=== PATIENT | female | born 1955 | race Caucasian/White ===

== ENCOUNTER 2019-02-24 02:48 | Inpatient (IN) | payer OTHER ==
[~2019-02-24] VITALS: Ht 157.5 cm; Wt 77.3 kg
[2019-02-24] VITALS (11 sets, daily range): BP systolic 100–126
[2019-02-24] MEDS ORDERED: NACL 0.9% 1,000 ML IV ONE ×2 (03:30→07:15)
[2019-02-24] MEDS ORDERED: KETOROLAC TROMETHAMINE 30 MG VIAL IVP ONE (03:30)
[2019-02-24] MEDS ORDERED: cefTRIAXone 1 GM IVPB PREMIX 50 ML IV ONE (03:30)
[2019-02-24 04:07] LABS: BASOPHILS % (AUTO) 0.2 % (0.0-2.0); EOSINOPHILS % (AUTO) 0.3 % (0.0-4.0); HEMATOCRIT 32.2 % (36-48); HEMOGLOBIN 11.1 g/dL (12.0-16.0); LYMPHOCYTES # (AUTO) 0.4 K/uL (1.0-5.5); LYMPHOCYTES % (AUTO) 3.4 % (20.5-51.5); MEAN CORPUSCULAR HEMOGLOBIN 32 pg (27-31); MEAN CORPUSCULAR HGB CONC 34 % (32-36); MEAN CORPUSCULAR VOLUME 92 fL (79.0-98.0); MONOCYTES % (AUTO) 7.8 % (1.7-9.3); NEUTROPHILS # (AUTO) 11.2 K/uL (1.8-7.7); NEUTROPHILS % (AUTO) 88.3 % (40.0-70.0); PLATELET COUNT (AUTO) 205 K/uL (130-430); RED CELL DISTRIBUTION WIDTH 13.7 % (9.0-15.0); WHITE BLOOD COUNT (AUTO) 12.7 K/uL (4.8-10.8)
[2019-02-24 04:19] LABS: CALCIUM 8.3 mg/dL (8.4-11.0); CREATININE 1.02 mg/dL (0.55-1.30); POTASSIUM 4.2 mmol/L (3.5-5.1)
[2019-02-24 04:25] LABS: TOTAL BILIRUBIN 0.5 mg/dL (0.0-1.0)
[2019-02-24 06:01] LABS: BILIRUBIN,URINE NEGATIVE (NEGATIVE); BLOOD, URINE 2+ (NEGATIVE); CLARITY/URINE CLEAR (CLEAR); COLOR,URINE YELLOW (YELLOW); GLUCOSE,URINE TRACE (NEGATIVE); KETONES,URINE TRACE (NEGATIVE); LEUKOCYTE ESTERASE ,URINE 2+ (NEGATIVE); NITRITE, URINE NEGATIVE (NEGATIVE); PH,URINE 5.5 (5.0-8.0); PROTEIN URINE 2+ (NEGATIVE); UROBILINOGEN,URINE 0.2 (0.2-1.0)
[2019-02-24 06:19] LABS: BACTERIA,URINE MODERATE /HPF (None Seen); WBC,URINE >100 /HPF (0-3)
[2019-02-24] MEDS ORDERED: NS 500 ML IV PRN (08:38)
[2019-02-24] MEDS ORDERED: MORPHINE 2 MG/ML INJ. SYRINGE IVP PRN (08:45)
[2019-02-24] MEDS ORDERED: cefTRIAXone 1 GM in D5W 50 ML IV ONE (09:00)
[2019-02-24] MEDS ORDERED: cefTRIAXone 1 GM VIAL ONE (09:22)
[2019-02-24] MEDS ORDERED: IOHEXOL 100 ML IV ONE (09:35)
[2019-02-24] MEDS: LEVOFLOXACIN 500 MG/D5W 100 ML IV SCH (10:22)
[2019-02-24] MEDS: NACL 0.9% 1,000 ML IV SCH ×3 (10:22→23:37)
[2019-02-24] MEDS: ACETAMINOPHEN 325 MG TABLET PO PRN (10:56)
[2019-02-24] MEDS ORDERED: HYDROcodone/ACETAMIN 5-325 MG TAB (NORCO/ VICODIN) PO PRN (11:15)
[2019-02-24] MEDS ORDERED: IBUPROFEN 600 MG TABLET PO PRN (11:15)
[2019-02-24] MEDS ORDERED: PANTOPRAZOLE SODIUM 40 MG TAB PO ONE (11:15)
[2019-02-24] MEDS ORDERED: PRO40 PO (14:21)
[2019-02-24] MEDS ORDERED: LORA-258 PO (14:21)
[2019-02-24] MEDS ORDERED: LISI10TA5 PO (14:21)
[2019-02-24] MEDS ORDERED: DITXL5 PO (14:21)
[2019-02-24] MEDS ORDERED: PRAV20TA PO (14:21)
[2019-02-24] MEDS ORDERED: GLU850 PO (14:21)
[2019-02-24] MEDS ORDERED: GLIM2TAB2 PO (14:21)
[2019-02-24] MEDS: GABAPENTIN 300 MG CAPSULE PO SCH (20:36)
[2019-02-24] MEDS: ATORVASTATIN 10 MG TABLET PO SCH (20:37)
[2019-02-25] VITALS: BP_SYST 124
[2019-02-25] MEDS: NACL 0.9% 1,000 ML IV SCH ×3 (05:23→19:50)
[2019-02-25] MEDS: ACETAMINOPHEN 325 MG TABLET PO PRN (05:25)
[2019-02-25 07:39] LABS: HEMATOCRIT 31.4 % (36-48); HEMOGLOBIN 10.8 g/dL (12.0-16.0); MEAN CORPUSCULAR HEMOGLOBIN 32 pg (27-31); MEAN CORPUSCULAR HGB CONC 35 % (32-36); MEAN CORPUSCULAR VOLUME 92 fL (79.0-98.0); PLATELET COUNT (AUTO) 238 K/uL (130-430); RED BLOOD CELL COUNT(AUTO) 3.43 MIL/uL (4.2-6.2); RED CELL DISTRIBUTION WIDTH 13.9 % (9.0-15.0)
[2019-02-25 08:05] LABS: ALBUMIN 2.5 g/dL (3.4-4.8); CALCIUM 7.9 mg/dL (8.4-11.0); CREATININE 0.7 mg/dL (0.55-1.30); POTASSIUM 3.1 mmol/L (3.5-5.1); TOTAL BILIRUBIN 0.2 mg/dL (0.0-1.0)
[2019-02-25 08:46] LABS: BAND % (MANUAL) 0 % (0-6); BASOPHILS % (MANUAL) 0 % (0-2); EOSINOPHILS % (MANUAL) 0 % (0-7); LYMPHOCYTES % (MANUAL) 12 % (20-46); MONOCYTES % (MANUAL) 5 % (0-11)
[2019-02-25] MEDS: PANTOPRAZOLE SODIUM 40 MG TAB PO SCH (09:23)
[2019-02-25] MEDS: GLIMEPIRIDE 2 MG TABLET PO SCH (09:23)
[2019-02-25] MEDS: ENOXAPARIN SODIUM 40 MG/0.4 ML SYRINGE SUBCUT SCH (09:30)
[2019-02-25] MEDS ORDERED: MAGNESIUM CITRATE 300 ML ORAL SOLUTION PO ONE (10:30)
[2019-02-25] MEDS ORDERED: POTASSIUM CHLORIDE 20 MEQ TAB.PRT.SR PO ONE (10:30)
[2019-02-25] MEDS ORDERED: POLYETHYLENE GLYCOL 3350, 17 GM/ POWD.PACK PO ONE (10:30)
[2019-02-25] MEDS: LEVOFLOXACIN 500 MG/D5W 100 ML IV SCH (10:57)
[2019-02-25 12:55] VITALS: BP_SYST 151
[2019-02-25 16:50] VITALS: BP_SYST 160
[2019-02-25] MEDS: ATORVASTATIN 10 MG TABLET PO SCH (20:01)
[2019-02-25] MEDS: GABAPENTIN 300 MG CAPSULE PO SCH (20:02)
[2019-02-25] MEDS: POTASSIUM CHLORIDE 20 MEQ TAB.PRT.SR PO SCH (20:02)
[2019-02-25 20:05] VITALS: BP_SYST 135
[2019-02-26] VITALS: BP_SYST 116
[2019-02-26] MEDS: ACETAMINOPHEN 325 MG TABLET PO PRN (00:12)
[2019-02-26 06:51] LABS: BASOPHILS # (AUTO) 0.1 K/uL (0.0-0.2); BASOPHILS % (AUTO) 0.8 % (0.0-2.0); EOSINOPHILS # (AUTO) 0.3 K/uL (0.0-0.4); EOSINOPHILS % (AUTO) 4.1 % (0.0-4.0); HEMATOCRIT 33.3 % (36-48); HEMOGLOBIN 11.1 g/dL (12.0-16.0); LYMPHOCYTES # (AUTO) 1.9 K/uL (1.0-5.5); LYMPHOCYTES % (AUTO) 28.1 % (20.5-51.5); MEAN CORPUSCULAR HEMOGLOBIN 31 pg (27-31); MEAN CORPUSCULAR HGB CONC 33 % (32-36); MEAN CORPUSCULAR VOLUME 92 fL (79.0-98.0); MONOCYTES # (AUTO) 1.3 K/uL (0.0-1.0); MONOCYTES % (AUTO) 19.4 % (1.7-9.3); NEUTROPHILS # (AUTO) 3.3 K/uL (1.8-7.7); NEUTROPHILS % (AUTO) 47.6 % (40.0-70.0); PLATELET COUNT (AUTO) 275 K/uL (130-430); RED BLOOD CELL COUNT(AUTO) 3.62 MIL/uL (4.2-6.2); RED CELL DISTRIBUTION WIDTH 13.9 % (9.0-15.0); WHITE BLOOD COUNT (AUTO) 6.8 K/uL (4.8-10.8)
[2019-02-26 06:58] LABS: CALCIUM 8.2 mg/dL (8.4-11.0); CREATININE 0.56 mg/dL (0.55-1.30); POTASSIUM 4.2 mmol/L (3.5-5.1)
[2019-02-26] MEDS: ENOXAPARIN SODIUM 40 MG/0.4 ML SYRINGE SUBCUT SCH (09:00)
[2019-02-26] MEDS ORDERED: POLYETHYLENE GLYCOL 3350, 17 GM/ POWD.PACK PO SCH (09:00)
[2019-02-26] MEDS: POTASSIUM CHLORIDE 20 MEQ TAB.PRT.SR PO SCH (09:07)
[2019-02-26] MEDS: GLIMEPIRIDE 2 MG TABLET PO SCH (09:07)
[2019-02-26] MEDS: PANTOPRAZOLE SODIUM 40 MG TAB PO SCH (09:08)
[2019-02-26] MEDS: LEVOFLOXACIN 500 MG/D5W 100 ML IV SCH (09:13)
[2019-02-26 12:30] VITALS: BP_SYST 155
[2019-02-26] MEDS ORDERED: LEVO500T89 PO (14:14)
[2019-02-26] MEDS ORDERED: amLODIPine BESYLATE 5 MG TABLET PO ONE (14:30)
[2019-02-26 15:22] VITALS: BP_SYST 129
[2019-02-26 16:15] VITALS: BP_SYST 142
== END 2019-02-26 15:55 | disposition home or self-care (01) | DRG 872 ==
LOC: SED 02:48 → SIC 08:36 → STU 19:05
PROVIDERS: ADMIT Internal Medicine; ATTEND Internal Medicine
DX: A41.9 Sepsis, unspecified organism (principal); N12 Tubulo-interstitial nephritis, not specified as acute or chronic; E11.9 Type 2 diabetes mellitus without complications; E78.5 Hyperlipidemia, unspecified; G89.29 Other chronic pain; I10 Essential (primary) hypertension; K80.20 Calculus of gallbladder without cholecystitis without obstruction; M54.12 Radiculopathy, cervical region; Z83.3 Family history of diabetes mellitus; Z90.710 Acquired absence of both cervix and uterus; M54.16 Radiculopathy, lumbar region; Z79.899 Other long term (current) drug therapy
CPT/HCPCS: 36415; 71045; 76700-TC; 80048; 80053; 81000-TC; 82150-TC; 83605; 83690-TC; 83735-TC; 85007; 85025; 85027; 87040-TC; 87081; 87086; 87186-TC; 93005; 96361; 96365; 96375; 99291; G0378; J0696; J1650; J1885; J1956; J7030; J7060; Q9967

== ENCOUNTER 2023-01-06 19:28 | Emergency (ER) | payer OTHER ==
[~2023-01-06] VITALS: Ht 152.4 cm; Wt 65.8 kg
[~2023-01-06 19:28] MED LIST: GLIM2TAB PO; GLU850 PO; LEVO-62 PO; LISI10TA29 PO; LORA-258 PO; PRAV20TA PO; PRO40 PO
[2023-01-06 19:40] VITALS: BP_SYST 121; PULSE 98; RESP 20; TEMP 99.4; O2SAT 97
[2023-01-06] MEDS ORDERED: NACL 0.9% 1,000 ML IV ONE (20:00)
[2023-01-06 20:13] LABS: BASOPHILS % (AUTO) 0.1 % (0.0-2.0); EOSINOPHILS % (AUTO) 0.1 % (0.0-4.0); HEMATOCRIT 38.1 % (36-48); HEMOGLOBIN 12.9 g/dL (12.0-16.0); LYMPHOCYTES # (AUTO) 0.7 K/uL (1.0-5.5); LYMPHOCYTES % (AUTO) 4.4 % (20.5-51.5); MEAN CORPUSCULAR HEMOGLOBIN 31 pg (27-31); MEAN CORPUSCULAR HGB CONC 34 % (32-36); MEAN CORPUSCULAR VOLUME 91 fL (79.0-98.0); MONOCYTES # (AUTO) 1.5 K/uL (0.0-1.0); MONOCYTES % (AUTO) 9.2 % (1.7-9.3); NEUTROPHILS # (AUTO) 13.7 K/uL (1.8-7.7); NEUTROPHILS % (AUTO) 86.2 % (40.0-70.0); PLATELET COUNT (AUTO) 253 K/uL (130-430); RED BLOOD CELL COUNT(AUTO) 4.18 MIL/uL (4.2-6.2); WHITE BLOOD COUNT (AUTO) 15.9 K/uL (4.8-10.8)
[2023-01-06 20:24] LABS: BILIRUBIN,URINE NEGATIVE (NEGATIVE); BLOOD, URINE 2+ (NEGATIVE); CLARITY/URINE CLEAR (CLEAR); COLOR,URINE YELLOW (YELLOW); GLUCOSE,URINE 3+ (NEGATIVE); KETONES,URINE 1+ (NEGATIVE); LEUKOCYTE ESTERASE ,URINE NEGATIVE (NEGATIVE); NITRITE, URINE NEGATIVE (NEGATIVE); PROTEIN URINE 1+ (NEGATIVE); UROBILINOGEN,URINE 0.2 (0.2-1.0)
[2023-01-06 20:25] LABS: CALCIUM 9.3 mg/dL (8.4-11.0); CREATININE 0.94 mg/dL (0.55-1.30); POTASSIUM 3.4 mmol/L (3.5-5.1)
[2023-01-06 20:29] LABS: ALBUMIN 3.1 g/dL (3.4-4.8); TOTAL BILIRUBIN 0.6 mg/dL (0.0-1.0); TOTAL PROTEIN, SERUM 7.6 g/dL (6.4-8.3)
[2023-01-06 20:38] LABS: BACTERIA,URINE RARE /HPF (None Seen); MUCUS,URINE None Seen /LPF (None Seen)
[2023-01-06 21:55] VITALS: BP_SYST 118; PULSE 69; RESP 20; TEMP 98.1; O2SAT 95
[2023-01-07] MEDS ORDERED: HYDR-3917 PO (23:39)
[2023-01-07] MEDS ORDERED: TAMS0.4C96 PO (23:39)
[2023-01-09] MEDS ORDERED: SULF1TAB48 PO (14:12)
== END 2023-01-06 21:55 | disposition home or self-care (01) ==
LOC: SED 19:28
DX: N39.0 Urinary tract infection, site not specified (principal); R10.31 Right lower quadrant pain; E11.9 Type 2 diabetes mellitus without complications; I10 Essential (primary) hypertension; K21.9 Gastro-esophageal reflux disease without esophagitis; Z79.899 Other long term (current) drug therapy
CPT/HCPCS: 99284; 74176; 96360; 80053; 81001; 85025; 87040; 87086; 36415; 76376; 83605; 81000; 81015; J7030

== ENCOUNTER 2023-01-07 20:01 | Emergency (ER) | payer OTHER ==
[~2023-01-07] VITALS: Ht 154.9 cm; Wt 65.8 kg
[2023-01-07 20:24] VITALS: BP_SYST 121; PULSE 81; RESP 18; TEMP 97; O2SAT 97
[2023-01-07] MEDS ORDERED: KETOROLAC TROMETHAMINE 30 MG VIAL IM ONE (21:30)
[2023-01-07 23:01] LABS: BASOPHILS % (AUTO) 0.3 % (0.0-2.0); EOSINOPHILS % (AUTO) 0.2 % (0.0-4.0); HEMATOCRIT 35.9 % (36-48); HEMOGLOBIN 11.8 g/dL (12.0-16.0); LYMPHOCYTES # (AUTO) 1.2 K/uL (1.0-5.5); LYMPHOCYTES % (AUTO) 10.9 % (20.5-51.5); MEAN CORPUSCULAR HEMOGLOBIN 30 pg (27-31); MEAN CORPUSCULAR HGB CONC 33 % (32-36); MEAN CORPUSCULAR VOLUME 91 fL (79.0-98.0); MONOCYTES # (AUTO) 1.5 K/uL (0.0-1.0); MONOCYTES % (AUTO) 13.2 % (1.7-9.3); NEUTROPHILS # (AUTO) 8.3 K/uL (1.8-7.7); NEUTROPHILS % (AUTO) 75.4 % (40.0-70.0); PLATELET COUNT (AUTO) 258 K/uL (130-430); RED BLOOD CELL COUNT(AUTO) 3.93 MIL/uL (4.2-6.2); RED CELL DISTRIBUTION WIDTH 13.9 % (9.0-15.0)
[2023-01-07 23:14] LABS: CALCIUM 9.1 mg/dL (8.4-11.0); CREATININE 0.82 mg/dL (0.55-1.30); POTASSIUM 3.6 mmol/L (3.5-5.1)
[2023-01-07 23:19] LABS: ALBUMIN 2.8 g/dL (3.4-4.8); TOTAL BILIRUBIN 0.3 mg/dL (0.0-1.0); TOTAL PROTEIN, SERUM 7.2 g/dL (6.4-8.3)
[2023-01-07] MEDS ORDERED: HYDR-3917 PO (23:39)
[2023-01-07] MEDS ORDERED: TAMS0.4C96 PO (23:39)
[2023-01-07] MEDS ORDERED: HYDROcodone/ACETAMIN 5-325 MG TAB (NORCO/ VICODIN) PO ONE (23:45)
[2023-01-07 23:55] VITALS: BP_SYST 131; PULSE 63; RESP 17; O2SAT 96
[2023-01-09] MEDS ORDERED: SULF1TAB48 PO (14:12)
== END 2023-01-07 23:50 | disposition home or self-care (01) ==
LOC: SED 20:01
DX: N20.1 Calculus of ureter (principal); M54.50 Low back pain, unspecified; R51.9 Headache, unspecified; E11.9 Type 2 diabetes mellitus without complications; K21.9 Gastro-esophageal reflux disease without esophagitis; I10 Essential (primary) hypertension; Z79.899 Other long term (current) drug therapy
CPT/HCPCS: 99283; 80053; 85025; 36415; 96372; J1885

== ENCOUNTER 2023-11-11 10:10 | Emergency (ER) | payer OTHER ==
[~2023-11-11] VITALS: Ht 157.5 cm; Wt 73.5 kg
[~2023-11-11 10:10] MED LIST changes: +HYDR-3917 PO; +SULF1TAB48 PO; +TAMS0.4C96 PO
[2023-11-11 10:42] VITALS: BP_SYST 130; PULSE 58; RESP 16; TEMP 97.6; O2SAT 98
[2023-11-11] MEDS: KETOROLAC TROMETHAMINE 30 MG VIAL IM ONE (11:05)
[2023-11-11 11:10] VITALS: BP_SYST 130; PULSE 58; RESP 16; TEMP 97.6; O2SAT 98
== END 2023-11-11 11:13 | disposition home or self-care (01) ==
LOC: SED 10:10
DX: M54.16 Radiculopathy, lumbar region (principal); E11.9 Type 2 diabetes mellitus without complications; K21.9 Gastro-esophageal reflux disease without esophagitis; I10 Essential (primary) hypertension; Z79.899 Other long term (current) drug therapy; Z79.2 Long term (current) use of antibiotics
CPT/HCPCS: 99283; 96372; J1885